=== PATIENT | male | born 1980 | race African-American/Black ===

== ENCOUNTER 2017-08-26 19:28 | Emergency (ER) | payer SELFPAY ==
[~2017-08-26] VITALS: Ht 177.8 cm; Wt 102.3 kg
[2017-08-26 20:21] VITALS: BP 166/107; PULSE 65; RESP 16; TEMP 98.5; O2SAT 98
[2017-08-26] MEDS ORDERED: ASPIRIN 81 MG CHEW TAB PO ONE (22:15)
[2017-08-26] MEDS ORDERED: SODIUM CHLORIDE 0.9% FLUSH 10 ML FLUSH IVF PRN (22:15)
[2017-08-26 22:37] LABS: AUTOMATED NEUTROPHIL # 3.1 TH/MM3 (1.8-7.7); BASOPHIL # 0.1 TH/MM3 (0-0.2); BASOPHIL % 1.1 % (0.0-2.0); EOSINOPHIL # 0.3 TH/MM3 (0-0.4); EOSINOPHIL % 3.8 % (0.0-4.0); HEMATOCRIT 42.8 % (39.0-51.0); HEMOGLOBIN 14.2 GM/DL (13.0-17.0); LYMPH % 39.9 % (9.0-44.0); LYMPHOCYTE # 2.7 TH/MM3 (1.0-4.8); MEAN CELL VOLUME 83.4 FL (80.0-100.0); MEAN CORPUSCULAR HEMOGLOBIN 27.8 PG (27.0-34.0); MEAN CORPUSCULAR HGB CONC 33.3 % (32.0-36.0); MEAN PLATELET VOLUME 8.7 FL (7.0-11.0); MONO % 9.5 % (0.0-8.0); MONOCYTE # 0.6 TH/MM3 (0-0.9); NEUT % 45.7 % (16.0-70.0); PLATELET COUNT 242 TH/MM3 (150-450); RED BLOOD COUNT 5.12 MIL/MM3 (4.50-5.90); RED CELL DISTRIBUTION WIDTH 14.2 % (11.6-17.2); WHITE BLOOD COUNT 6.7 TH/MM3 (4.0-11.0)
--- NOTE | 2017-08-26 22:55 | RADRPT ---
EXAM DATE/TIME: 08/26/2017 22:21 [place] COMPARISON: No previous studies available for comparison. INDICATIONS : Chest pain for 24 hours MEDICAL HISTORY : None. SURGICAL HISTORY : None. ENCOUNTER: Initial ACUITY: 1 day PAIN SCORE: 7/10 LOCATION: Bilateral upper chest FINDINGS: A single view of the chest demonstrates the lungs to be symmetrically aerated without evidence of mas s, infiltrate or effusion. The cardiomediastinal contours are unremarkable. Osseous structures are intact. CONCLUSION: No acute disease. Isai Feliciano MD on August 26, 2017 at 22:53 Board Certified Radiologist. This report was verified electronically.
[2017-08-26 23:04] LABS: ALT (GPT) 34 U/L (12-78)
[2017-08-26 23:13] LABS: ALKALINE PHOSPHATASE 67 U/L (45-117); AST (GOT) 38 U/L (15-37); BICARBONATE 27.3 MEQ/L (21.0-32.0); BLOOD UREA NITROGEN 11 MG/DL (7-18); CALCIUM 8.8 MG/DL (8.5-10.1); CHLORIDE 102 MEQ/L (98-107); CREATININE 1.09 MG/DL (0.60-1.30); GLOMERULAR FILTRATION RATE 91 ML/MIN (>89); GLUCOSE,RANDOM 91 MG/DL (74-106); MAGNESIUM 1.9 MG/DL (1.5-2.5); SODIUM (NA) 136 MEQ/L (136-145); TOTAL BILIRUBIN ADULT 0.7 MG/DL (0.2-1.0); TOTAL PROTEIN 8.2 GM/DL (6.4-8.2); TROPONIN I LESS THAN 0.02 NG/ML (0.02-0.05)
--- NOTE | 2017-08-26 23:39 | PD ---
HPI Chief Complaint: Cardiac Complaint Time Seen by Provider: 22:10 Travel History International Travel<30 days: No Contact w/Intl Traveler<30days: No Traveled to known affect area: No History of Present Illness HPI Patient 37 years old. He complains of chest pain for 1 week. He complains of radiation of pain to the right back. Patient drinks alcohol on occasion. Patient smokes tobacco daily. No diabetes hypertension or hyperlipidemia. No personal history coronary artery disease or family history coronary artery disease. There is no exertional component. He reports in the past a similar episode he experienced and was diagnosed as pneumonia and worries that is what he might have today. No fever. No coughing. PFSH Past Medical History Medical History: Denies Significant Hx Diminished Hearing: No Past Surgical History Surgical History: No Previous Surgery Social History Alcohol Use: Yes Tobacco Use: No Substance Use: Yes (MARIJUANA) Allergies-Medications (Allergen,Severity, Reaction): Coded Allergies: No Known Allergies (Unverified , 08/26/17) Reported Meds & Prescriptions Reported Meds & Active Scripts Active No Active Prescriptions or Reported Medications Review of Systems Except as stated in HPI: all other systems reviewed are Neg General / Constitutional: No: Fever Physical Exam Narrative GENERAL: 37 yo M, WNWD, NAD Vital Signs Date Time Temp Pulse Resp B/P (MAP) Pulse Ox O2 Delivery O2 Flow Rate FiO2 08/26/17 22:16 99 Room Air 08/26/17 20:21 98.5 65 16 166/107 (126) 98 SKIN: Warm and dry. HEAD: Atraumatic. Normocephalic. EYES: Pupils equal and round. No scleral icterus. No injection or drainage. ENT: No nasal bleeding or discharge. Mucous membranes pink and moist. NECK: Trachea midline. No JVD. CARDIOVASCULAR: Regular rate and rhythm. RESPIRATORY: No accessory muscle use. Clear to auscultation. Breath sounds equal bilaterally. GASTROINTESTINAL: Abdomen soft, non-tender, nondistended. Hepatic and splenic margins not palpable. MUSCULOSKELETAL: Extremities without clubbing, cyanosis, or edema. No obvious deformities. NEUROLOGICAL: Awake and alert. No obvious cranial nerve deficits. Motor grossly within normal limits. Five out of 5 muscle strength in the arms and legs. Normal speech. PSYCHIATRIC: Appropriate mood and affect; insight and judgment normal. Data Data Last Documented VS Vital Signs Date Time Temp Pulse Resp B/P (MAP) Pulse Ox O2 Delivery O2 Flow Rate FiO2 08/26/17 22:16 99 Room Air 08/26/17 20:21 98.5 65 16 166/107 (126) Orders Orders Electrocardiogram (08/26/17 22:10) Ckmb (Isoenzyme) Profile (08/26/17 22:10) Complete Blood Count With Diff (08/26/17 22:10) Comprehensive Metabolic Panel (08/26/17 22:10) Magnesium (Mg) (08/26/17 22:10) Troponin I (08/26/17 22:10) Lipase (08/26/17 22:10) Ecg Monitoring (08/26/17 22:10) Iv Access Insert/Monitor (08/26/17 22:10) Oximetry (08/26/17 22:10) Oxygen Administration (08/26/17 22:10) Aspirin Chew (Aspirin Chew) (08/26/17 22:15) Sodium Chloride 0.9% Flush (Ns Flush) (08/26/17 22:15) Chest, Single Ap (08/26/17 ) CKMB (08/26/17 22:20) CKMB% (08/26/17 22:20) Labs Laboratory Tests Test 08/26/17 22:20 White Blood Count 6.7 TH/MM3 Red Blood Count 5.12 MIL/MM3 Hemoglobin 14.2 GM/DL Hematocrit 42.8 % Mean Corpuscular Volume 83.4 FL Mean Corpuscular Hemoglobin 27.8 PG Mean Corpuscular Hemoglobin Concent 33.3 % Red Cell Distribution Width 14.2 % Platelet Count 242 TH/MM3 Mean Platelet Volume 8.7 FL Neutrophils (%) (Auto) 45.7 % Lymphocytes (%) (Auto) 39.9 % Monocytes (%) (Auto) 9.5 % Eosinophils (%) (Auto) 3.8 % Basophils (%) (Auto) 1.1 % Neutrophils # (Auto) 3.1 TH/MM3 Lymphocytes # (Auto) 2.7 TH/MM3 Monocytes # (Auto) 0.6 TH/MM3 Eosinophils # (Auto) 0.3 TH/MM3 Basophils # (Auto) 0.1 TH/MM3 CBC Comment DIFF FINAL Differential Comment Blood Urea Nitrogen 11 MG/DL Creatinine 1.09 MG/DL Random Glucose 91 MG/DL Total Protein 8.2 GM/DL Albumin 4.0 GM/DL Calcium Level 8.8 MG/DL Magnesium Level 1.9 MG/DL Alkaline Phosphatase 67 U/L Aspartate Amino Transf (AST/SGOT) 38 U/L Alanine Aminotransferase (ALT/SGPT) 34 U/L Total Bilirubin 0.7 MG/DL Sodium Level 136 MEQ/L Potassium Level 4.0 MEQ/L Chloride Level 102 MEQ/L Carbon Dioxide Level 27.3 MEQ/L Anion Gap 7 MEQ/L Estimat Glomerular Filtration Rate 91 ML/MIN Total Creatine Kinase 325 U/L Creatine Kinase MB 0.8 NG/ML Creatine Kinase MB % 0.2 % Troponin I LESS THAN 0.02 NG/ML Lipase 97 U/L MDM Medical Decision Making Medical Screen Exam Complete: Yes Emergency Medical Condition: Yes Medical Record Reviewed: Yes Differential Diagnosis NSTEMI, unstable angina, coronary vasospasm, PE, PTX, aortic dissection, pericarditis, myocarditis, endocarditis, PNA, esophageal disease, aneurysm, musculoskeletal etiologies, anxiety, cocaine/sympathomimetic abuse Narrative Course CBC & BMP Diagram 08/26/17 22:20 Total Protein 8.2, Albumin 4.0, Calcium Level 8.8, Magnesium Level 1.9, Alkaline Phosphatase 67, Aspartate Amino Transf (AST/SGOT) 38 H, Alanine Aminotransferase (ALT/SGPT) 34, Total Bilirubin 0.7 CXR: NACPD Diagnosis Primary Impression: Chest pain Qualified Codes: R07.9 - Chest pain, unspecified Referrals: [facility] call for appointment Med/Other Pt SpecificInfo: No Change to Meds Scripts No Active Prescriptions or Reported Meds Disposition: 01 DISCHARGE HOME Condition: Stable Stephen Purdy MD Aug 26, 2017 23:39
--- NOTE | 2017-08-27 16:30 | EKG ---
Date Performed: 08/26/2017 Time Performed: 22:04:17 PTAGE: 37 years EKG: Sinus rhythm WITH SINUS ARRHYTHMIA SEPTAL MYOCARDIAL INFARCTION ABNORMAL ECG NO PREVIOUS TRACING DOCTOR: Vanessa Murphy Interpretating Date/Time 08/27/2017 16:28:35
== END 2017-08-27 00:03 | disposition home or self-care (01) ==
LOC: NEPC 19:28
DX: R07.9 Chest pain, unspecified (principal); R94.31 Abnormal electrocardiogram [ECG] [EKG]; Z72.0 Tobacco use
CPT/HCPCS: 71045; 80053; 82550; 82552; 83690; 83735; 84484; 85025; 93005

== ENCOUNTER 2018-07-06 21:59 | Observation (INO) ==
[2018-07-06 22:25] LABS: Baso # (Auto) 0.1 th/mm3 (0.0-0.2); Baso % (Auto) 0.9 % (0.0-2.0); Eos # (Auto) 0.2 th/mm3 (0.0-0.4); Eos % (Auto) 2.7 % (0.0-4.0); Hematocrit 39.7 % (39.0-51.0); Hemoglobin 13.9 gm/dL (13.0-17.0); Lymph # (Auto) 2.5 th/mm3 (1.0-4.8); Lymph % (Auto) 41.7 % (9.0-44.0); Mean Corpuscular Hemoglobin 28.6 pg (27.0-34.0); Mean Corpuscular Volume 81.8 fL (80.0-100.0); Mean Platelet Volume 8.6 fL (7.0-11.0); Mono # (Auto) 0.6 th/mm3 (0.0-0.9); Mono % (Auto) 10.3 % (0.0-8.0); Neut # (Auto) 2.7 th/mm3 (1.8-7.7); Neut % (Auto) 44.4 % (16.0-70.0); Platelet Count 225 th/mm3 (150-450); Red Blood Count 4.86 mil/mm3 (4.50-5.90); Red Cell Distribution Width 14.7 % (11.6-17.2)
--- NOTE | 2018-07-06 22:36 | XR ---
EXAM DATE: 07/06/2018 10:33 PM EST AGE/SEX: 38 years / Male INDICATIONS: . Chest pressure, previous pneumonia. CLINICAL DATA: This is the patient's initial encounter. Patient reports that signs and symptoms have been present for 3 days and indicates a pain score of 2/10. MEDICAL/SURGICAL HISTORY: None. None. COMPARISON: [facility] [place]ST SINGLE AP, 08/26/2017. . FINDINGS: PA and lateral views of the chest demonstrate the lungs to be symmetrically aerated without evidence of mass, infiltrate or effusion. The cardiomediastinal contours are unremarkable. Osseous structures are intact. CONCLUSION: Negative for acute process Electronically signed by: Matt Vergara MD Board Certified Radiologist 07/06/2018 10:34 PM EST
[2018-07-06 22:46] LABS: Alanine Aminotransferase 39 U/L (12-78); Albumin 4.2 g/dL (3.4-5.0); Anion Gap 7 meq/L (5-15); Aspartate Aminotransferase 32 U/L (15-37); Blood Urea Nitrogen 11 mg/dL (7-18); Calcium 8.4 mg/dL (8.5-10.1); Carbon Dioxide 28.5 meq/L (21.0-32.0); Chloride 104 meq/L (98-107); Glomerular Filtration Rate 84 mL/min (>89); Glucose,Random 98 mg/dL (74-106); Potassium 3.3 meq/L (3.5-5.1); Sodium 139 meq/L (136-145)
[2018-07-06 22:49] LABS: Alkaline Phosphatase 66 U/L (45-117); Total Protein 8.6 g/dL (6.4-8.2); Troponin I 0.06 ng/mL (0.02-0.05)
--- NOTE | 2018-07-06 22:52 | ED ---
HPI General Chief Complaint: Chest Pain Stated Complaint: Chest Pain/Resp Time Seen by Provider: 07/06/18 22:15 Source: patient and family Limitations: no limitations History of Present Illness HPI narrative: Patient is a 38-year-old male, previously healthy though he is a smoker, who presents with complaint of chest pain for the last 2-3 days that began while doing nothing in particular. He is not sure if his constant or intermittent but knows that it does wax and wane in intensity. Position does not change it and he is not sure if exertion does or not. Tonight while cooking he began to have shortness of breath which prompted him to come to the emergency department. The pain is a pressure in the substernal chest that does radiate down the left upper extremity. No nausea nor vomiting. No fever nor chills nor cough. No abdominal pain nor back pain. No numbness nor weakness. MD complaint: Reports chest pain STEMI Alert: No Onset (ago): day(s) Duration: other Onset: during rest Pain location: Reports substernal Severity: moderate Quality: Reports heaviness Pain radiation: Reports LUE Relieving factors: nothing Exacerbating factors: nothing Associated symptoms: Reports dyspnea Treatments prior to arrival chest pain: Reports none Related Data Allergies Allergy/AdvReac Type Severity Reaction Status Date / Time No Known Allergies Allergy Unverified 08/26/17 20:25 Review of Systems ROS: all other systems reviewed are negative [facility] Medical History Medical History Patient denies medical problems (Acute) Surgical History Surgical History No history of previous surgery (Acute) Social History Social History Substance History: No History of Abuse Second Hand Smoke Exposure: No Smoking Status: Current every day smoker Tobacco Type: Cigarettes How Often Do You Have a Drink Containing Alcohol: 2 to 4 times a month Immunization History Tetanus Immunization: >5 Years Exam Narrative Exam Narrative: GENERAL: Well-appearing young male in no acute respiratory distress though intermittently clutching his chest. SKIN: Focused skin assessment warm/dry. HEAD: Atraumatic. Normocephalic. EYES: Pupils equal and round. No scleral icterus. No injection or drainage. ENT: No nasal bleeding or discharge. Mucous membranes pink and moist. NECK: Trachea midline. No JVD. CARDIOVASCULAR: Regular rate and rhythm. No murmur appreciated. Intact and equal peripheral pulses. RESPIRATORY: No accessory muscle use. Clear to auscultation. Breath sounds equal bilaterally. GASTROINTESTINAL: Abdomen soft, non-tender, nondistended. Hepatic and splenic margins not palpable. MUSCULOSKELETAL: No obvious deformities. No clubbing. No cyanosis. No edema. NEUROLOGICAL: Awake and alert. No obvious cranial nerve deficits. Motor within normal limits. Normal sensation. Normal speech. PSYCHIATRIC: Appropriate mood and affect; insight and judgment normal. Course Initial Documented Vital Signs Temperature 97.8 F 07/06/18 22:01 Pulse Rate 84 07/06/18 22:01 Respiratory Rate 20 07/06/18 22:01 Blood Pressure 157/98 H 07/06/18 22:01 Pulse Oximetry 98 07/06/18 22:01 Last Documented Vital Signs Temperature 97.8 F 07/06/18 22:01 Pulse Rate 84 07/06/18 22:01 Respiratory Rate 20 07/06/18 22:01 Blood Pressure 157/98 H 07/06/18 22:01 Pulse Oximetry 95 07/07/18 00:17 Sign Out Sign Out Data: Patient Sign Out occurred on 07/06/18 at 23:59. Patient's care was discussed, and care was transferred from Madison Greenberg MD to Stephen Purdy MD. Sign Out Comment: Chest pain for 2-3 days. EKG unchanged from previous. Aspirin and nitro paste given with slight relief but still having pressure. Troponin 0.06. Morphine has been ordered and re-eval afterwards pending to determine if pain is controlled or not. Will at least need observation admission. Last updated by Madison Greenberg MD at 07/06/18 23:02 Medical Decision Making MDM Narrative Medical decision making narrative: Patient is a 38-year-old male who presents with complaint of chest pain that is now associated with dyspnea. He is PERC negative. EKG is unchanged from previous. He has been given aspirin and nitro on arrival. The topical nitro may have helped, he is not sure. CBC and BMP unremarkable. Troponin is 0.06 and the upper limit of acceptable to the chest pain center is 0.07. His pain however, is not yet relieved. Morphine has been ordered. If his pain continues to be uncontrolled he may have to be placed on a nitro drip. This is pending at time of check out. Pt found to be resting comfortably in ED. Pt reports resolution of CP and is agreeable with plan for [employer]. CBC normal K 3.3 Tn 0.06 EKG sinus rate 69, left axis deviation, normal intervals and axis, no ST elevation, TWI or evidence acute ischemia otherwise Chest pain center staff called to have the patient admitted to the hospitalist service because the troponin result was 0.06. Case d/w Dr Cuevas for [facility] who will admit the patient. Medical Screen Exam Complete: Yes Emergency Medical Condition: Yes Differential Diagnosis Differential Diagnosis: Differential diagnosis includes but is not limited to acute coronary syndrome, pneumonia, pneumothorax. Medical Records Medical records reviewed: Yes I reviewed the patient's medical records. Lab Data Result diagrams: 07/06/18 22:10 07/06/18 22:10 Lab Results 07/06/18 07/06/18 Range/Units 22:10 22:10 WBC 6.0 (4.0-11.0) th/mm3 RBC 4.86 (4.50-5.90) mil/mm3 Hgb 13.9 (13.0-17.0) gm/dL Hct 39.7 (39.0-51.0) % MCV 81.8 (80.0-100.0) fL MCH 28.6 (27.0-34.0) pg MCHC 35.0 (32.0-36.0) % RDW 14.7 (11.6-17.2) % Plt Count 225 (150-450) th/mm3 MPV 8.6 (7.0-11.0) fL Neut % (Auto) 44.4 (16.0-70.0) % Lymph % (Auto) 41.7 (9.0-44.0) % [place] % (Auto) 10.3 H (0.0-8.0) % Eos % (Auto) 2.7 (0.0-4.0) % Baso % (Auto) 0.9 (0.0-2.0) % Neut # (Auto) 2.7 (1.8-7.7) th/mm3 Lymph # (Auto) 2.5 (1.0-4.8) th/mm3 [place] # (Auto) 0.6 (0.0-0.9) th/mm3 Eos # (Auto) 0.2 (0.0-0.4) th/mm3 Baso # (Auto) 0.1 (0.0-0.2) th/mm3 WBC Differential . Differential Comment Auto diff final Sodium 139 (136-145) meq/L Potassium 3.3 L (3.5-5.1) meq/L Chloride 104 (98-107) meq/L Carbon Dioxide 28.5 (21.0-32.0) meq/L Anion Gap 7 (5-15) meq/L BUN 11 (7-18) mg/dL Creatinine 1.17 (0.60-1.30) mg/dL Estimated GFR 84 L (>89) mL/min Random Glucose 98 (74-106) mg/dL Calcium 8.4 L (8.5-10.1) mg/dL Total Bilirubin 0.6 (0.2-1.0) mg/dL AST 32 (15-37) U/L ALT 39 (12-78) U/L Alkaline Phosphatase 66 (45-117) U/L Troponin I 0.06 H (0.02-0.05) ng/mL Total Protein 8.6 H (6.4-8.2) g/dL Albumin 4.2 (3.4-5.0) g/dL Imaging Data Radiologist's impression: Chest X-Ray 07/06/18 22:16 CONCLUSION: Negative for acute process ECG Data EKG Prior to Arrival: Yes Attestation: I personally reviewed and interpreted this ECG as follows: Prior ECG tracings: available for review Discharge Plan Discharge Disposition Patient Disposition: ED Admit(ED Internal Use Only) Discharge Condition Condition: Stable Discharge Order Discharge Orders: ED Use Only Admit Order (Routine); Ordered 07/07/18 Ordered By: Stephen Purdy Discharge Details Diagnosis: Chest pain, rule out acute myocardial infarction Physicians Team ED Provider: Stephen Purdy Primary Care Provider: Primary Care Physici,Sammi Attending Provider: Yong Scruggs Status ED Status: Admitted Observation Patient
[2018-07-06] MEDS ORDERED: Morphine Inj 4 MG/ML Vial IV.PUSH ONE (22:55)
[2018-07-06] MEDS ORDERED: Acetaminophen 500 MG Tablet PO PRN (23:55)
[2018-07-06] MEDS ORDERED: Temazepam 15 MG Capsule PO PRN (23:55)
[2018-07-06] MEDS ORDERED: ALPRAZolam 0.25 MG Tablet PO PRN (23:55)
[2018-07-06] MEDS ORDERED: Morphine Inj 4 MG/ML Vial IV.PUSH PRN (23:55)
--- NOTE | 2018-07-07 01:39 | P.HPIM ---
History of Present Illness Primary Care Physician: No Primary Care Physician History of Present Illness: This is a 38-year-old male with no significant PMH who presented the ER with complaints of chest pain x2-3 days. States chest pain is substernal, intermittent, moderate, 6/10, non-radiating, occurs at rest and with exertion. No h/o similar symptoms. Initial work up negative and was to be admitted to [facility], however 2nd trop increased to 0.06 from 0.02. Currently chest pain free. On arrival, BP 157/98, HR 84, O2 sat 98% on RA, Afebrile. CBC unremarkable. Chemistry unremarkable except for K+ 3.3. GFR 84. Troponin 0 0.02, repeat 0.06. CXR with no acute findings. Diagnosis (1) Chest pain: (2) Elevated troponin: (3) HTN (hypertension): (4) Hypokalemia: Review of Systems PAST FAMILY HISTORY: Reviewed. No h/o DM or CAD Review of Systems: all other systems reviewed are negative [facility] Medical History Medical History Patient denies medical problems (Acute) Surgical History Surgical History No history of previous surgery (Acute) Social History Social History Substance History: No History of Abuse Second Hand Smoke Exposure: No Smoking Status: Current every day smoker Tobacco Type: Cigarettes How Often Do You Have a Drink Containing Alcohol: 2 to 4 times a month Immunization History Tetanus Immunization: >5 Years Medications and Allergies Allergies Allergy/AdvReac Type Severity Reaction Status Date / Time No Known Allergies Allergy Unverified 08/26/17 20:25 Active Medications: Active Medications Acetaminophen (Tylenol) 500 mg PO Q4H PRN PRN Reason: HEADACHE Hydrocodone Bitart/Acetaminophen ([place] 7.5/325) 1 tab PO Q4H PRN PRN Reason: PAIN SCALE 1 TO 7 Alprazolam (Xanax) 0.25 mg PO Q8H PRN PRN Reason: ANXIETY Aspirin (Aspirin) 325 mg PO DAILY [facility] Metoprolol Tartrate (Lopressor) 25 mg PO BID [facility] Morphine Sulfate (Morphine Inj) 2 mg IV.PUSH Q4H PRN PRN Reason: PAIN SCALE 8 TO 10 Nitroglycerin (Nitrostat Sl) 0.4 mg SL Q5M PRN PRN Reason: CHEST PAIN Ondansetron HCl (Zofran Inj) 4 mg IV.PUSH Q6H PRN PRN Reason: NAUSEA Pravastatin Sodium (Pravachol) 40 mg PO DAILY [facility] Sodium Chloride (Ns Flush) 2 ml IV.FLUSH UNSCH PRN PRN Reason: FLUSH AFTER USING IV ACCESS Last Admin: 07/06/18 22:31 Dose: 2 ml Sodium Chloride (Ns Flush) 2 ml IV.FLUSH BID [facility] Sodium Chloride (Ns Flush) 2 ml IV.FLUSH PRN PRN PRN Reason: FLUSH AFTER USING IV ACCESS Temazepam (Restoril) 15 mg PO HS PRN PRN Reason: INSOMNIA Physical Exam Vital signs: Vital Signs 07/06/18 22:01 07/07/18 00:08 07/07/18 00:17 Temperature 97.8 F Pulse Rate 84 Respiratory Rate 20 Blood Pressure 157/98 H Pulse Oximetry 98 95 95 Intake & Output 07/06/18 07/06/18 07/07/18 06:59 18:59 06:59 Weight 102.058 kg Narrative: PE: GENERAL: Young black male in no acute distress. SKIN: Focused skin assessment warm and dry. HEENT: PERRLA, EOMI. No scleral icterus or conjunctival pallor. No lid lag or facial droop. CARDIOVASCULAR: Regular rate and rhythm. No obvious murmurs to auscultation. No chest tenderness to palpation. RESPIRATORY: No obvious rhonchi or wheezing. Clear to auscultation. Breath sounds equal bilaterally. GASTROINTESTINAL: Abdomen soft, non-tender, nondistended. BS normal. MUSCULOSKELETAL: Extremities without clubbing, cyanosis, or edema. No obvious deformities. NEUROLOGICAL: Awake, alert and oriented x4. No focal neurologic deficits. Moving both upper and lower extremities spontaneously. PSYCHIATRIC: Appropriate mood and affect. Insight and judgment normal. Results Labs CBC & Chem 7: 07/06/18 22:10 07/06/18 22:10 Imaging Impressions Chest X-Ray 07/06/18 22:16 CONCLUSION: Negative for acute process Caprini VTE Risk Assessment Caprini VTE Risk Assessment: No/Low Risk (score <= 1) Caprini Risk Assessment Model: Point Value = 1 Point Value = 2 Point Value = 3 Point Value = 5 Age 41-60 Minor surgery BMI > 25 kg/m2 Swollen legs Varicose veins or History of unexplained or recurrent spontaneous Oral contraceptives or hormone replacement Sepsis (< 1 month) Serious lung disease, including pneumonia (< 1 month) Abnormal pulmonary function Acute myocardial infarction Congestive heart failure (< 1 month) History of inflammatory bowel disease Medical patient at bed rest Age 61-74 Arthroscopic surgery Major open surgery (> 45 min) Laparoscopic surgery (> 45 min) Malignancy Confined to bed (> 72 hours) Immobilizing plaster cast Central venous access Age >= 75 History of VTE Family history of VTE Factor V Leiden Prothrombin [id number] Lupus anticoagulant Anticardiolipin antibodies Elevated serum homocysteine Heparin-induced thrombocytopenia Other congenital or acquired thrombophilia Stroke (< 1 month) Elective arthroplasty Hip, pelvis, or leg fracture Acute spinal cord injury (< 1 month) Prophylaxis Regimen: Total Risk Factor Score Risk Level Prophylaxis Regimen 0-1 Low Early ambulation 2 Moderate Order ONE of the following: *Sequential Compression Device (SCD) *Heparin 5000 units SQ BID 3-4 Higher Order ONE of the following medications: *Heparin 5000 units SQ TID *Enoxaparin/Lovenox 40 mg SQ daily (WT < 150 kg, CrCl > 30 mL/min) *Enoxaparin/Lovenox 30 mg SQ daily (WT < 150 kg, CrCl > 10-29 mL/min) *Enoxaparin/Lovenox 30 mg SQ BID (WT < 150 kg, CrCl > 30 mL/min) AND/OR *Sequential Compression Device (SCD) 5 or more Highest Order ONE of the following medications: *Heparin 5000 units SQ TID (Preferred with Epidurals) *Enoxaparin/Lovenox 40 mg SQ daily (WT < 150 kg, CrCl > 30 mL/min) *Enoxaparin/Lovenox 30 mg SQ daily (WT < 150 kg, CrCl > 10-29 mL/min) *Enoxaparin/Lovenox 30 mg SQ BID (WT < 150 kg, CrCl > 30 mL/min) AND *Sequential Compression Device (SCD) Assessment and Plan (1) Chest pain: Code(s): R07.9 - Chest pain, unspecified Status: Acute (2) Elevated troponin: Code(s): R74.8 - Abnormal levels of other serum enzymes Status: Acute (3) HTN (hypertension): Code(s): I10 - Essential (primary) hypertension Status: Acute (4) Hypokalemia: Code(s): E87.6 - Hypokalemia Status: Acute Plan A/P: 1. Chest Pain: intermittent episodes of substernal chest pain at rest and w/ exertion, no h/o CAD, NTG/Morphine as needed. 2. Elevated Trop: Initial trop 0.02, repeat increased to 0.06, currently chest pain free. Admit for further eval, telemetry, check lipid profile, Hgb A1c, start ASA, Statin, Metoprolol. Cardio eval as needed. 3. HTN: Uncontrolled. BP 150's on arrival, start Metoprolol, monitor BP, antihypertensives as needed for BP >180 4. Hypokalemia: K+ 3.3, give replacement, recheck labs in am. 5. DVT Prophylaxis: SCD/Teds 6. Social work for d/c planning as needed. 7. Case discussed w/ ER physician at length, labs/records/imaging reviewed by me.
[2018-07-07 02:17] LABS: Troponin I 0.06 ng/mL (0.02-0.05)
[2018-07-07 02:30] LABS: CKMB Percent 0.4 % (0.0-4.0); Creatine Kinase MB 1.4 ng/mL (0.5-3.6)
[2018-07-07 04:19] LABS: Chol/HDL Ratio 5.89 Ratio; HDL Cholesterol 26.3 mg/dL (40.0-60.0); Troponin I 0.05 ng/mL (0.02-0.05)
[2018-07-07] MEDS ORDERED: Regadenoson Inj 0.4 MG/5 ML Syringe IV.PUSH ONE (08:04)
[2018-07-07 08:17] VITALS: RESP 16
[2018-07-07] MEDS ORDERED: Metoprolol Tartrate 25 MG Tablet PO SCH (09:00)
[2018-07-07] MEDS ORDERED: Aspirin 325 MG Tablet PO SCH (09:00)
[2018-07-07 09:15] LABS: Amphetamine Screen,Urine Neg (Neg); Barbiturate Screen,Urine Neg (Neg); Cannabinoid Screen,Urine Pos (Neg); Cocaine Screen,Urine Neg (Neg)
[2018-07-07 09:17] LABS: Opiate Screen,Urine Neg (Neg)
--- NOTE | 2018-07-07 11:28 | ECG ---
Date Performed: 07/07/2018 Time Performed: 02:54:30 PTAGE: 38 years EKG: Sinus rhythm WITH SINUS ARRHYTHMIA NONSPECIFIC T-WAVE ABNORMALITY BORDERLINE ECG PREVIOUS TRACING : 07/07/2018 01.15 No significant change from previous tracing noted. DOCTOR: Sebastián Flores Interpretating Date/Time 07/07/2018 11:27:39
--- NOTE | 2018-07-07 11:29 | ECG ---
Date Performed: 07/07/2018 Time Performed: 01:15:50 PTAGE: 38 years EKG: Sinus rhythm BORDERLINE LEFT AXIS DEVIATION NONSPECIFIC T-WAVE ABNORMALITY BORDERLINE ECG INTERPRETATION BASED ON A DEFAULT AGE OF 88 YEARS PREVIOUS TRACING : 07/06/2018 22.10 No significant change from previous tracing noted. DOCTOR: Sebastián Flores Interpretating Date/Time 07/07/2018 11:29:33
--- NOTE | 2018-07-07 11:31 | ECG ---
Date Performed: 07/06/2018 Time Performed: 22:10:24 PTAGE: 38 years EKG: Sinus rhythm BORDERLINE LEFT AXIS DEVIATION BORDERLINE ECG PREVIOUS TRACING : 08/26/2017 22.04 No significant change from previous tracing noted. DOCTOR: Sebastián Flores Interpretating Date/Time 07/07/2018 11:30:47
--- NOTE | 2018-07-07 12:08 | P.PNIM ---
Subjective Interval history: Follow up for chest pain. The patient reports feeling better today, denies any further chest pain although does have nitro ointment on chest. He reports a mild headache. Denies any shortness of breath. Denies any other medical complaints. He previously smoked tobacco. Mother had heart disease at unknown age. Brother has CHF. The patient has never had any prior cardiac work up. Physical Exam Vital signs: Vital Signs 07/06/18 22:01 07/07/18 00:08 07/07/18 00:17 Temperature 97.8 F Pulse Rate 84 Respiratory Rate 20 Blood Pressure 157/98 H Pulse Oximetry 98 95 95 07/07/18 02:00 07/07/18 02:45 07/07/18 04:00 Temperature 97.7 F 97.7 F Pulse Rate 70 62 65 Respiratory Rate 20 12 12 Blood Pressure 138/70 141/89 H 126/76 Pulse Oximetry 98 97 96 07/07/18 08:00 07/07/18 09:07 Temperature 98.2 F Pulse Rate 61 Respiratory Rate 16 Blood Pressure 149/76 H Pulse Oximetry 96 96 Intake & Output 07/06/18 07/07/18 07/07/18 18:59 06:59 18:59 Intake Total 0 / 0 Balance 0 / 0 Weight 102.058 kg Intake: Oral 0 / 0 Other: # Voids 2 Date of Last Bowel Movement 07/06/18 07/06/18 Weight On Admission 102.058 kg Narrative: GENERAL: Pleasant young black male in no acute distress. SKIN: Focused skin assessment warm and dry. CARDIOVASCULAR: Regular rate and rhythm. No obvious murmurs to auscultation. RESPIRATORY: No obvious rhonchi or wheezing. Clear to auscultation. Breath sounds equal bilaterally. GASTROINTESTINAL: Abdomen soft, non-tender, nondistended. BS normal. MUSCULOSKELETAL: Extremities without clubbing, cyanosis, or edema. No obvious deformities. NEUROLOGICAL: Awake, alert and oriented x4. No focal neurologic deficits. Moving both upper and lower extremities spontaneously. PSYCHIATRIC: Appropriate mood and affect. Insight and judgment normal. Results Labs CBC & Chem 7: 07/06/18 22:10 07/06/18 22:10 Imaging Imaging: Impressions Chest X-Ray 07/06/18 22:16 CONCLUSION: Negative for acute process Assessment and Plan (1) Chest pain: Code(s): R07.9 - Chest pain, unspecified Status: Acute (2) Elevated troponin: Code(s): R74.8 - Abnormal levels of other serum enzymes Status: Acute (3) HTN (hypertension): Code(s): I10 - Essential (primary) hypertension Status: Acute (4) Hypokalemia: Code(s): E87.6 - Hypokalemia Status: Acute Plan 38-year-old male with no significant PMH who presented the ER with complaints of intermittent chest pain x2-3 days. Chest Pain with Elevated Troponin: concern for NSTEMI vs angina. Intermittent episodes of substernal chest pain at rest and w/ exertion, no h/o CAD, however relieved with nitroglycerin. -Troponins trended 0.06 --> 0.06 --> 0.05 -EKG without acute ischemic changes -Given NTG/Morphine as needed. -Started aspirin, statin, metoprolol -Check lipid profile and HgbA1c -Monitor on telemetry -Keep NPO -Check Lexiscan, plan to consult cardiology if positive -1500hrs: Lexiscan unremarkable, low risk, EF 67%. Change to cardiac diet. Stable for discharge. HTN: Uncontrolled. BP 150's on arrival -start Metoprolol with concern for ACS as above -monitor BP -antihypertensives as needed for BP >180 -Will start on Norvasc 5 mg at discharge, recommend follow-up with PCP Hyperlipidemia: LDL elevated at 110 -LFTs within normal limits -started on pravastatin 40 mg daily, discussed risks -Outpatient follow-up with PCP Hypokalemia: K+ 3.3 -given replacement DVT Prophylaxis: SCD/Teds Discharge Planning: Discharge patient to home Condition on discharge: Stable Regular Diet as tolerated Ad Kinjal activity Rx written: Norvasc 5 mg daily, pravastatin 40 mg daily Follow-up with primary care physician Progress Note: Quality VTE Deep Vein Thrombosis/Pulmonary Embolism Present on Admission: No
[2018-07-07 12:09] VITALS: BP 144/84; TEMP 98.1; O2SAT 98
--- NOTE | 2018-07-07 14:25 | NM ---
EXAM DATE: 07/07/2018 2:04 PM EST AGE/SEX: 38 years / Male INDICATIONS:Angina. . Left sided chest pain for three days. CLINICAL DATA: This is the patient's initial encounter. Patient reports that signs and symptoms have been present for 1 day and indicates a pain score of 2/10. MEDICAL/SURGICAL HISTORY: None. None. COMPARISON: No prior exams available for comparison. No external comparison. DOSE: 10.2 mCi Tc 99m Myoview at rest 30.2 mCi [id number] at stress 0.4 mg Lexiscan STRESS SYMPTOMS: None. EJECTION FRACTION: 67 % TECHNIQUE: The patient underwent pharmacologic stress with infusion of prescribed dose. Continuous ECG tracing was monitored during stress. Gated SPECT imaging was performed after stress and conventi onal SPECT imaging was performed at rest. The examination was performed on a SPECT/CT scanner, both attenuation and non-corrected datasets were reviewed. FINDINGS: Distribution: The maximum perfused segment at stress is in the septal wall. Perfusion Study: The pattern of perfusion at stress is within normal limits. Gated Study: There are intact wall motion and wall thickening without hypokinetic or dyskinetic segm ents. The ejection fraction is calculated at 67%. RISK CATEGORY: Low (<1% Annual Mortality Rate) CONCLUSION: 1. Negative examination. Electronically signed by: Farhad Madrigal MD Board Certified Radiologist 07/07/2018 2:24 PM EST
[2018-07-07 15:41] VITALS: PULSE 66
== END 2018-07-07 16:02 | disposition home or self-care (01) ==
LOC: NEDA 21:59 → NEPE 21:59 → NEPGCP 07-07 02:43
PROVIDERS: ADMIT Hospitalist; ATTEND Hospitalist
DX: R07.89 Other chest pain; I10 Essential (primary) hypertension; R74.8 Abnormal levels of other serum enzymes; I20.9 Angina pectoris, unspecified; E78.5 Hyperlipidemia, unspecified; F17.210 Nicotine dependence, cigarettes, uncomplicated; E87.6 Hypokalemia
CPT/HCPCS: 71020; 71046; 78452; 80053; 80061; 80307; 82550; 82552; 84484; 85025; 90774; 90784; 93005; 93017; 96374; 99285; A9502; C8952; G0378; J2270; J2785